=== PATIENT | female | born 1980 | race Caucasian/White ===

== ENCOUNTER 2018-11-27 18:39 | Emergency (ER) | payer OTHER ==
[~2018-11-27] VITALS: Ht 160 cm; Wt 103.2 kg
[2018-11-27 18:42] VITALS: BP 120/79
[2018-11-27] MEDS ORDERED: AMOX1TAB64 PO (19:20)
[2018-11-27] MEDS ORDERED: AZIT500T5 PO (19:20)
== END 2018-11-27 19:24 | disposition home or self-care (01) ==
LOC: ED 19:18
DX: S11.83XA Puncture wound without foreign body of other specified part of neck, initial encounter (principal); W46.1XXA Contact with contaminated hypodermic needle, initial encounter; Y93.F9 Activity, other caregiving; Y92.89 Other specified places as the place of occurrence of the external cause; Y99.8 Other external cause status
CPT/HCPCS: 36415; 86705; 86706; 86803; 87340; 87806; 99283; G0475

== ENCOUNTER 2019-06-25 05:19 | Emergency (ER) | payer OTHER, BC ==
[~2019-06-25] VITALS: Ht 160 cm; Wt 103.5 kg
[2019-06-25 07:11] VITALS: BP 111/72
== END 2019-06-25 07:59 | disposition home or self-care (01) ==
LOC: ED 07:07
DX: M25.512 Pain in left shoulder (principal); M54.12 Radiculopathy, cervical region
CPT/HCPCS: 72050; 73030; 96372; 99283; J1885

== ENCOUNTER 2020-02-21 10:19 | Inpatient (IN) | payer OTHER, BC ==
[~2020-02-21] VITALS: Ht 160 cm; Wt 95.9 kg
[~2020-02-21 10:19] MED LIST: AMOX1TAB64 PO; AZIT500T10 PO; GABA300C10 PO; HYDR-3237 PO; METH500T7 PO; POLY17PO5 PO
--- NOTE | 2020-02-21 10:30 | NUR ---
DEA # [id number]
--- NOTE | 2020-02-21 10:40 | NUR ---
PT MOVED ROOMS, AMBULATORY, NO SIGNS OF DISTRESS.
[2020-02-21] MEDS ORDERED: ACETAMINOPHEN 500 MG TABLET PO ONE (11:00)
--- NOTE | 2020-02-21 11:00 | NUR ---
PT TOOK 1000MG TYLENOL AT HOME AT 0930 THIS AM. ERP AWARE, HELD ORDERED TYLENOL
[2020-02-21 11:19] LABS: BASOPHILS # (AUTO) 0.03 x10^3/uL (0-0.1); BASOPHILS % (AUTO) 0 % (0-1); EOSINOPHILS # (AUTO) 0.04 x10^3/uL (0-0.4); EOSINOPHILS % (AUTO) 1 % (1-7); LYMPHOCYTES # (AUTO) 2.53 x10^3/uL (1-3.4); LYMPHOCYTES % (AUTO) 39 % (22-44); MD NO; MEAN CORPUSCULAR HEMOGLOBIN 29.7 pg (27.0-34.8); MEAN CORPUSCULAR HGB CONC 33.7 g/dL (32.4-35.8); MEAN CORPUSCULAR VOLUME 88.2 fL (80-100); MEAN PLATELET VOLUME 9.1 fL (7.4-10.4); MONOCYTES # (AUTO) 0.34 x10^3/uL (0.2-0.8); MONOCYTES % (AUTO) 5 % (2-9); NEUTROPHILS # (AUTO) 3.52 x10^3/uL (1.8-6.8); NEUTROPHILS % (AUTO) 55 % (42-75); PLATELET COUNT 255 x10^3/uL (130-400); RED BLOOD COUNT 5.21 x10^6/uL (3.82-5.3); RED CELL DISTRIBUTION WIDTH 13.8 % (9.6-15.2)
[2020-02-21 11:26] LABS: ALBUMIN 3.2 g/dL (3.4-5.0); ANION GAP 9 mmol/L (5-15); CALCIUM 8.7 mg/dL (8.5-10.1); CHLORIDE 112 mmol/L (98-107); CREATININE 0.87 mg/dL (0.55-1.02)
--- NOTE | 2020-02-21 11:58 | NUR ---
PT SITTING IN BED, CALL LIGHT AND PHONE WITHIN REACH, NO SIGNS OF DISTRESS. WILL CONTINUE TO MONITOR.
--- NOTE | 2020-02-21 12:34 | NUR ---
PT SATING 88% ON RA. PT PLACED BACK ON 2L O2 PER N/C. ERP AWARE.
--- NOTE | 2020-02-21 13:19 | NUR ---
NORAHR MD AT BEDSIDE UPDATING PT ON POC, PT LAYING IN BED, NO SIGNS OF DISTRESS.
[2020-02-21] MEDS ORDERED: LABETALOL 5MG/ML, 20ML IVPush PRN (13:30)
--- NOTE | 2020-02-21 14:58 | NUR ---
PT LAYING IN BED, PHONE IN HAND, NO SIGNS OF DISTRESS, WILL CONTINUE TO MONITOR.
[2020-02-21] MEDS: ENOXAPARIN 40 MG/0.4 ML SQ SCH (15:10)
[2020-02-21] MEDS ORDERED: ACETAMINOPHEN 325 MG TABLET ONE (15:21)
[2020-02-21] MEDS: ACETAMINOPHEN 325 MG TABLET PO PRN (15:25)
--- NOTE | 2020-02-21 15:26 | NUR ---
PT MEDICATED TO MAR, TYLENOL FOR JOSEPH. CONVERSING WITH NURSE, PHONE AND CALL LIGHT WITHIN REACH, NO SIGNS OF DISTRESS. WILL CONTINUE TO MONITOR.
--- NOTE | 2020-02-21 16:06 | NUR ---
PT LAYING IN BED, NO SIGNS OF DISTRESS. WILL CONTINUE TO MONITOR. VSS.
--- NOTE | 2020-02-21 17:28 | NUR ---
PT ON PHONE IN BED, VSS, NO SIGNS OF DISTRESS, DIET TRAY ORDERED. WILL CONTINUE TO MONITOR.
--- NOTE | 2020-02-21 18:08 | NUR ---
PT CONDITION UNCHANGED WILL CONTINUE TO MONITOR.
--- NOTE | 2020-02-21 18:31 | NUR ---
PT SITTING UP, EATING DINNER. NO SIGNS OF DISTRESS, WILL CONTINUE TO MONITOR.
--- NOTE | 2020-02-21 19:13 | NUR ---
REPORT GIVEN TO DIOGO QUINTANA.
--- NOTE | 2020-02-21 19:45 | NUR ---
Report given to Kaylah LIND.
[2020-02-21 20:40] VITALS: BP_SYST 123; BP_DIAS 83; BP_DIAS 85
[2020-02-22] MEDS: ACETAMINOPHEN 325 MG TABLET PO PRN ×2 (01:11→09:43)
[2020-02-22 02:00] VITALS: BP 106/64
[2020-02-22 06:13] LABS: BASOPHILS # (AUTO) 0.03 x10^3/uL (0-0.1); BASOPHILS % (AUTO) 0 % (0-1); EOSINOPHILS # (AUTO) 0.11 x10^3/uL (0-0.4); EOSINOPHILS % (AUTO) 2 % (1-7); LYMPHOCYTES # (AUTO) 3.29 x10^3/uL (1-3.4); LYMPHOCYTES % (AUTO) 44 % (22-44); MD NO; MEAN CORPUSCULAR HEMOGLOBIN 29.3 pg (27.0-34.8); MEAN CORPUSCULAR HGB CONC 33.2 g/dL (32.4-35.8); MEAN CORPUSCULAR VOLUME 88.4 fL (80-100); MONOCYTES # (AUTO) 0.54 x10^3/uL (0.2-0.8); MONOCYTES % (AUTO) 7 % (2-9); NEUTROPHILS # (AUTO) 3.51 x10^3/uL (1.8-6.8); NEUTROPHILS % (AUTO) 47 % (42-75); PLATELET COUNT 224 x10^3/uL (130-400); RED BLOOD COUNT 5.08 x10^6/uL (3.82-5.3); RED CELL DISTRIBUTION WIDTH 13.8 % (9.6-15.2)
[2020-02-22 07:47] LABS: ALANINE AMINOTRANSFERASE 24 U/L (12-78); ANION GAP 6 mmol/L (5-15); CALCIUM 8.6 mg/dL (8.5-10.1); CHLORIDE 110 mmol/L (98-107); CREATININE 0.53 mg/dL (0.55-1.02)
[2020-02-22 07:49] LABS: ALKALINE PHOSPHATASE 68 U/L (45-117); BILIRUBIN,TOTAL 0.4 mg/dL (0.2-1.0)
[2020-02-22 08:00] VITALS: BP 113/79
[2020-02-22] MEDS: ENOXAPARIN 40 MG/0.4 ML SQ SCH ×2 (11:55→13:02)
[2020-02-22 12:30] VITALS: BP 94/65
[2020-02-22] MEDS ORDERED: DIPHENHYDRAMINE 25 MG CAPSULE PO ONE (15:00)
[2020-02-22 19:43] VITALS: BP 104/70
[2020-02-23 02:19] VITALS: BP 85/58
[2020-02-23 06:07] VITALS: BP 104/72
[2020-02-23] MEDS: ENOXAPARIN 40 MG/0.4 ML SQ SCH (13:17)
[2020-02-23 13:31] VITALS: BP 102/72
== END 2020-02-23 16:45 | disposition home or self-care (01) | DRG 189 ==
LOC: ED 10:43 → EDIP 12:45 → 3WST 20:40 → 3E 02-23 11:38
PROVIDERS: ADMIT Family Medicine; ATTEND Hospitalist
DX: J96.01 Acute respiratory failure with hypoxia (principal); Z87.01 Personal history of pneumonia (recurrent); Z98.1 Arthrodesis status; Z20.828 Contact with and (suspected) exposure to other viral communicable diseases
CPT/HCPCS: 36415; 71045; 80048; 80053; 82040; 85025; 93005; 99285; G0378; J1650; Q0163

== ENCOUNTER 2020-03-08 14:57 | Outpatient (CLI) | payer OTHER, BC ==
[2020-03-08] MEDS ORDERED: OMNIPAQUE 350 MG/ML, 100ML BOTTLE ONE (15:31)
== END 2020-03-08 23:59 | disposition home or self-care (01) ==
LOC: CFH 14:57
PROVIDERS: ATTEND Internal Medicine Cardiovascular Disease
DX: J96.01 Acute respiratory failure with hypoxia (principal)
CPT/HCPCS: 71275; Q9967

== ENCOUNTER → 2020-03-16 | Outpatient (CLI) | payer OTHER, BC | END | disposition home or self-care (01) | LOC: CFH 14:41 | PROVIDERS: ATTEND Nurse Practitioner Family | DX: I36.1 Nonrheumatic tricuspid (valve) insufficiency (principal); J96.01 Acute respiratory failure with hypoxia | CPT/HCPCS: 93306 ==

== ENCOUNTER 2020-10-17 03:38 | Emergency (ER) | payer OTHER, BC ==
[~2020-10-17] VITALS: Ht 157.5 cm; Wt 105.1 kg
[2020-10-17] MEDS ORDERED: SODIUM CHLORIDE FLUSH 10ML SYR IVF ONE (04:00)
[2020-10-17] MEDS ORDERED: SODIUM CHLORIDE 0.9% 1,000ML IVBOLUS ONE (04:00)
--- NOTE | 2020-10-17 04:36 | NUR ---
LATE ENTRY. CC OF ACHEY CHEST PAIN 06/27 IN THE [facility] CHEST THAT PT STATES SHE HAS HAD SINCE FEBRUARY WHEN SHE GOT COVID-19. PT SAYS IT WILL COME AND GO BUT TONIGHT IT BECAME WORSE THEN USUAL AND HASNT GO AWAY AND PT HAS BEEN VOMITING. PT CONNECTED TO CARDIAC MONITORS, IV PLACED AND LABS DRAWN.
[2020-10-17 04:43] LABS: MEAN CORPUSCULAR HEMOGLOBIN 29.9 pg (27.0-34.8); MEAN CORPUSCULAR HGB CONC 33.4 g/dL (32.4-35.8); MEAN PLATELET VOLUME 9.2 fL (7.4-10.4); PLATELET COUNT 244 x10^3/uL (130-400); RED BLOOD COUNT 5.39 x10^6/uL (3.82-5.3); RED CELL DISTRIBUTION WIDTH 13.9 % (9.6-15.2)
[2020-10-17 04:51] LABS: ALANINE AMINOTRANSFERASE 28 U/L (12-78); ALBUMIN 3.5 g/dL (3.4-5.0); ANION GAP 5 mmol/L (5-15); CALCIUM 8.5 mg/dL (8.5-10.1); CHLORIDE 112 mmol/L (98-107)
[2020-10-17 04:56] LABS: ALKALINE PHOSPHATASE 84 U/L (45-117); BILIRUBIN,TOTAL 0.5 mg/dL (0.2-1.0); CREATININE 0.92 mg/dL (0.55-1.02); TOTAL PROTEIN 7.7 g/dL (6.4-8.2); TROPONIN I < 0.015 ng/mL (0.000-0.045)
[2020-10-17] MEDS ORDERED: ONDANSETRON 2MG/ML, 2ML IVPush ONE (05:00)
[2020-10-17] MEDS ORDERED: ONDANSETRON 2MG/ML, 2ML ONE (05:04)
[2020-10-17 05:25] LABS: MD YES
[2020-10-17 05:26] LABS: <PLATELET ESTIMATE> ADEQUATE; <PLT MORPHOLOGY> NORMAL PLT MORPH; <RBC MORPHOLOGY> NORMAL; BAND#(MANUAL) 0.52 x10^3/uL; BANDS%(MANUAL) 7 % (0-7); LYMPH#(MANUAL) 0.59 x10^3/uL (1-3.4); LYMPHS% (MANUAL) 8 % (22-44); MONOS#(MANUAL) 0.37 x10^3/uL (0.3-2.7); MONOS% (MANUAL) 5 % (2-9); SEG#(MANUAL) 5.92 x10^3/uL (1.8-6.8); SEGS% (MANUAL) 80 % (42-75)
[2020-10-17 06:06] VITALS: BP 102/69
== END 2020-10-17 06:08 | disposition home or self-care (01) ==
LOC: ED 04:31
DX: R07.89 Other chest pain (principal); R00.0 Tachycardia, unspecified; R06.02 Shortness of breath; R11.2 Nausea with vomiting, unspecified
CPT/HCPCS: 36415; 71045; 80053; 83880; 84484; 84703; 85025; 85379; 93005; 96361; 96374; 99285; J2405; J7030

== ENCOUNTER 2020-10-28 18:33 | Emergency (ER) | payer OTHER, BC ==
[~2020-10-28] VITALS: Ht 160 cm; Wt 103.0 kg
[2020-10-28 18:46] VITALS: BP 127/87
== END 2020-10-28 20:36 | disposition home or self-care (01) ==
LOC: ED 20:10
DX: S16.1XXA Strain of muscle, fascia and tendon at neck level, initial encounter (principal); S39.012A Strain of muscle, fascia and tendon of lower back, initial encounter; G89.11 Acute pain due to trauma; M25.512 Pain in left shoulder; V49.49XA Driver injured in collision with other motor vehicles in traffic accident, initial encounter; Y93.89 Activity, other specified; Y92.488 Other paved roadways as the place of occurrence of the external cause; Y99.8 Other external cause status
CPT/HCPCS: 72110; 72125; 99284

== ENCOUNTER → 2020-11-23 | Outpatient (CLI) | payer OTHER, BC | END | disposition home or self-care (01) | LOC: CFH 12:43 | PROVIDERS: ATTEND Nurse Practitioner Family | DX: I36.1 Nonrheumatic tricuspid (valve) insufficiency (principal) | CPT/HCPCS: 93306 ==

== ENCOUNTER 2021-07-31 07:34 | Outpatient (CLI) | payer OTHER, BC ==
[~2021-07-31 07:34] MED LIST changes: +METH-639 PO; -METH500T7 PO; +REGADENOSON 0.4 MG/5 ML SYRINGE ONE
== END 2021-08-01 23:59 | disposition home or self-care (01) ==
LOC: CFH 07:34
PROVIDERS: ATTEND Internal Medicine Cardiovascular Disease
DX: R07.9 Chest pain, unspecified (principal)
CPT/HCPCS: 78452; 93017; A9502; J2785